=== PATIENT | female | born 1955 | race Caucasian/White ===

== ENCOUNTER → 2016-07-03 | Outpatient (CLI) | payer BC ==
[~2016-07-03] MED LIST: CRESTOR5 MG PO; ELMIRON 100 MG100 M1 PO; FISH OIL 1,2001 EAC4; LUNESTA3 MG; MAGNESIUM400 MG; UBIQUINOL100 MG; VITAMIN D31000 UNI2; [UNRECOGNIZED DRUG - REMARK]
== END ==
LOC: RAD 14:18
DX: J18.9 Pneumonia, unspecified organism (principal)